=== PATIENT | male | born 1980 | race Caucasian/White ===

== ENCOUNTER 2018-07-27 10:13 | Emergency (ER) | payer BC ==
[2018-07-27] MEDS ORDERED: Sodium Chloride 0.9% 1,000 ML IV ONE (10:28)
[2018-07-27] MEDS ORDERED: Ondansetron 4 MG/2 ML SDV IVPUSH ONE (10:28)
--- NOTE | 2018-07-27 10:50 | EDM.PDOC ---
ED HPI GENERAL MEDICAL PROBLEM - General Chief Complaint: Gastrointestinal Problem Stated Complaint: VOMITING, NAUSEA Time Seen by Provider: 07/27/18 10:18 Source of Information: Reports: Patient History Limitations: Reports: No Limitations - History of Present Illness INITIAL COMMENTS - FREE TEXT/NARRATIVE: HISTORY AND PHYSICAL: History of present illness: Patient is a 37-year-old male who presents to the emergency room with complaints of dizziness, nausea and vomiting. He states Thursday he was swimming with his son and as he was getting out of the water he experienced an episode of "vertigo". He states this lasted several minutes where he felt like the room was spinning. States he had 3 episodes of this "vertigo", which lasted several minutes each. On Thursday, he was in [place] with his family, and his and son were getting "checked out" at a local walk-in clinic. (His and son have ear infections.) Patient was also seen by the provider at that time, and placed on prednisone for his symptoms. He has had 2 doses of this medication, which he feels has exacerbated his symptoms, "constant" dull dizziness feeling with position changes. He states started after his second dose he had felt nauseated and was unable to eat due to the nausea and several episodes of vomiting. Denies any fever, chills, chest pain, shortness of breath or cough. Denies any headache, change in vision, syncope or near syncope. Denies any diarrhea, constipation or dysuria. No rashes or lesions noted. Review of systems: As per history of present illness and below otherwise all systems reviewed and negative. Past medical history: As per history of present illness and as reviewed below otherwise noncontributory. Surgical history: As per history of present illness and as reviewed below otherwise noncontributory. Social history: No reported history of drug or alcohol abuse. Family history: As per history of present illness and as reviewed below otherwise noncontributory. Physical exam: General: Well-developed and well-nourished 36-year-old male. Alert and oriented. Nontoxic appearing and in no acute distress. HEENT: Atraumatic, normocephalic, pupils equal and reactive bilaterally, negative for conjunctival pallor or scleral icterus, mucous membranes moist, throat clear, neck supple, nontender, trachea midline. Fluid noted behind the left TM, no erythema or bulging membrane. Right TM is blocked with cerumen unable to visualize the membrane. No erythema in the canal. No drooling or trismus noted. No meningeal signs Lungs: Clear to auscultation, breath sounds equal bilaterally, chest nontender. Heart: S1S2, regular rate and rhythm without overt murmur Abdomen: Soft, nondistended, nontender. Negative for masses or hepatosplenomegaly. Negative for costovertebral tenderness. Pelvis: Stable nontender. Genitourinary: Deferred. Rectal: Deferred. Skin: Intact, warm, dry. No lesions or rashes noted. Extremities: Atraumatic, negative for cords or calf pain. Neurovascular unremarkable. Neuro: Awake, alert, oriented. Cranial nerves II through XII unremarkable. Cerebellum unremarkable. Motor and sensory unremarkable throughout. Exam nonfocal. Notes: Lab work, EKG, chest x-ray and head CT are within normal limits. Patient feels improved after the fluids and zofran. He states he still has a lot of pressure in his frontal sinus and behind the right ear. Supportive care measures such as to proximal or mineral oil to soften the cerumen. Due to the complaints of dizziness and right ear pain and frontal sinus discomfort - will treat with augmentin. Encouraged him to follow-up with the ENT in the next 1-2 days. He voices understanding and is agreeable to plan of care. Denies any further questions or concerns at this time. Diagnostics: CBC, CMP, Chest x-ray, EKG, Head CT, Therapeutics: IV fluids, Zofran, meclizine Prescription: Augmentin Zofran Impression: Dizziness Sinusitis Plan: 1. Please take the medications as directed. 2. Tylenol and/or ibuprofen as needed for pain management. Meclizine over-the- counter for dizziness may be helpful. Please give Flonase and use as directed for the next week. 3. If he continues to have symptoms please follow-up with the research professional, their numbers on the discharge instructions. Definitive disposition and diagnosis as appropriate pending reevaluation and review of above. Duration: Day(s): Location: Reports: Head - Related Data Allergies Allergy/AdvReac Type Severity Reaction Status Date / Time No Known Allergies Allergy Verified 07/27/18 10:39 Home Meds: Home Meds Amoxicillin/Clavulanate K [Augmentin 577-380 MG] 1 tab PO BID 10 Days #20 tablet 07/27/18 [Rx] Lisinopril 5 mg PO DAILY 07/27/18 [History] Ondansetron [Zofran ODT] 4 mg PO Q6H PRN #8 tab.dis 07/27/18 [Rx] ED ROS GENERAL - Review of Systems Review Of Systems: ROS reveals no pertinent complaints other than HPI. ED EXAM, GENERAL - Physical Exam Exam: See Below (See dictation) EKG INTERPRETATION EKG Date: 07/27/18 Time: 10:37 Rhythm: NSR Rate (Beats/Min): 77 Comparison: NA - No Prior EKG Course - Vital Signs Last Recorded V/S: Last Vital Signs Temp 96.7 F 07/27/18 10:36 Pulse 81 07/27/18 12:12 Resp 18 07/27/18 12:12 BP 154/110 H 07/27/18 12:12 Pulse Ox 97 07/27/18 12:12 - Orders/Labs/Meds Orders: Active Orders 24 hr Category Date Time Status EKG Documentation Completion [RC] STAT Care 07/27/18 10:28 Active Orthostatic Vital Signs [RC] ASDIRECTED Care 07/27/18 10:28 Active Labs: Laboratory Tests 07/27/18 07/27/18 Range/Units 10:50 10:50 WBC 12.73 H (4.0-11.0) K/uL RBC 5.91 H (4.50-5.90) M/uL Hgb 17.3 H (13.0-17.0) g/dL Hct 50.8 H (38.0-50.0) % MCV 86.0 (80.0-98.0) fL MCH 29.3 (27.0-32.0) pg MCHC 34.1 (31.0-37.0) g/dL RDW Std Deviation 41.3 (28.0-62.0) fl RDW Coeff of Durga 13 (11.0-15.0) % Plt Count 309 (150-400) K/uL MPV 10.10 (7.40-12.00) fL Neut % (Auto) 63.1 (48.0-80.0) % Lymph % (Auto) 25.7 (16.0-40.0) % [place] % (Auto) 9.0 (0.0-15.0) % Eos % (Auto) 1.8 (0.0-7.0) % Baso % (Auto) 0.4 (0.0-1.5) % Neut # (Auto) 8.0 H (1.4-5.7) K/uL Lymph # (Auto) 3.3 H (0.6-2.4) K/uL [place] # (Auto) 1.1 H (0.0-0.8) K/uL Eos # (Auto) 0.2 (0.0-0.7) K/uL Baso # (Auto) 0.1 (0.0-0.1) K/uL Nucleated RBC % 0.0 /100WBC Nucleated RBCs # 0 K/uL Sodium 137 (136-148) mmol/L Potassium 3.8 (3.5-5.1) mmol/L Chloride 101 (98-107) mmol/L Carbon Dioxide 29.1 (21.0-32.0) mmol/L BUN 16 (7.0-18.0) mg/dL Creatinine 1.2 (0.8-1.3) mg/dL Est Cr Clr Drug Dosing 90.64 mL/min Estimated GFR (MDRD) > 60.0 ml/min Glucose 127 H (74-106) mg/dL Calcium 9.7 (8.5-10.1) mg/dL Total Bilirubin 0.8 (0.2-1.0) mg/dL AST 19 (15-37) IU/L ALT 45 (14-63) IU/L Alkaline Phosphatase 87 (46-116) U/L Troponin I < 0.050 (0.000-0.056) ng/mL Total Protein 8.2 (6.4-8.2) g/dL Albumin 4.0 (3.4-5.0) g/dL Globulin 4.2 H (2.0-3.5) g/dL Albumin/Globulin Ratio 1.0 L (1.3-2.8) Meds: Medications Discontinued Medications Generic Name Dose Route Start Last Admin Trade Name Freq PRN Reason Stop Dose Admin Sodium Chloride 1,000 mls @ 999 mls/hr 07/27/18 10:28 07/27/18 10:52 Normal Saline IV 07/27/18 11:28 999 mls/hr STAT ONE Administration Meclizine HCl 25 mg 07/27/18 11:36 07/27/18 12:01 Antivert PO 07/27/18 11:37 25 mg ONETIME ONE Administration Ondansetron HCl 4 mg 07/27/18 10:28 07/27/18 10:52 Zofran IVPUSH 07/27/18 10:29 4 mg ONETIME ONE Administration Departure - Departure Time of Disposition: 11:53 Disposition: Home, Self-Care 01 Clinical Impression: Dizziness Sinusitis Qualifiers: Sinusitis location: frontal Chronicity: acute Recurrence: non-recurrent Qualified Code(s): J01.10 - Acute frontal sinusitis, unspecified - Discharge Information Prescriptions: Amoxicillin/Clavulanate K [Augmentin 875-125 MG] 1 tab PO BID 10 Days #20 tablet Ondansetron [Zofran ODT] 4 mg PO Q6H PRN #8 tab.dis PRN Reason: Nausea Instructions: Sinusitis, Adult, [id number], Dizziness, [id number] Referrals: PCP,None [Primary Care Provider] - Forms: ED Department Discharge Additional Instructions: The following information is given to patients seen in the emergency department who are being discharged to home. This information is to outline your options for follow-up care. We provide all patients seen in our emergency department with a follow-up referral. The need for follow-up, as well as the timing and circumstances, are variable depending upon the specifics of your emergency department visit. If you don't have a primary care physician on staff, we will provide you with a referral. We always advise you to contact your personal physician following an emergency department visit to inform them of the circumstance of the visit and for follow-up with them and/or the need for any referrals to a consulting specialist. The emergency department will also refer you to a specialist when appropriate. This referral assures that you have the opportunity for follow-up care with a specialist. All of these measure are taken in an effort to provide you with optimal care, which includes your follow-up. Under all circumstances we always encourage you to contact your private physician who remains a resource for coordinating your care. When calling for follow-up care, please make the office aware that this follow-up is from your recent emergency room visit. If for any reason you are refused follow-up, please contact the [facility] Emergency Department at and asked to speak to the emergency department charge nurse. [facility] [address] [place] [id number] [facility] - ENT [address] [place] [id number] 1. Please take the medications as directed. 2. Tylenol and/or ibuprofen as needed for pain management. Meclizine over-the- counter for dizziness may be helpful. 3. Please get Flonase [id number] and use as directed for the next week ( to help with fluid behind the ear). 4. If he continues to have symptoms please follow-up with the research professional, their numbers on the discharge instructions. - My Orders Last 24 Hours: My Active Orders 07/27/18 10:28 EKG Documentation Completion [RC] STAT Orthostatic Vital Signs [RC] ASDIRECTED - Assessment/Plan Last 24 Hours: My Active Orders 07/27/18 10:28 EKG Documentation Completion [RC] STAT Orthostatic Vital Signs [RC] ASDIRECTED
[2018-07-27 11:24] LABS: CHLORIDE,CL 101 mmol/L (98-107); SODIUM,NA 137 mmol/L (136-148)
[2018-07-27] MEDS ORDERED: Meclizine 25 MG Tab PO ONE (11:36)
--- NOTE | 2018-07-27 11:45 | CT ---
EXAMINATION: Non contrast CT head. Coronal and sagittal reformats. HISTORY: Dizziness FINDINGS: No evidence of intra or extra axial hemorrhage, mass, midline shift, hydrocephalus or edema. No hypoattenuation changes in the major vascular territories to suggest acute infarct. No abnormal intracranial calcifications are detected. No evidence of substantial vascular calcificat ions. Paranasal sinuses and mastoid air cells are well aerated without substantial findings. The orbits an d globes are symmetric. Pituitary fossa appears unremarkable. Calvarium is intact. No evidence of skull fracture. IMPRESSION: No acute intracranial findings.
--- NOTE | 2018-07-27 11:46 | CR ---
EXAMINATION: Portable chest radiograph. HISTORY: Dizziness. FINDINGS: The trachea is midline. The cardiomediastinal silhouette is within normal limits. No pulmonary infilt rates, effusions or pneumothorax. Osseous structures appear unremarkable. IMPRESSION: No acute cardiopulmonary process.
== END 2018-07-27 12:12 | disposition home or self-care (01) ==
LOC: MW.ED 10:13
DX: J01.10 Acute frontal sinusitis, unspecified (principal); R42 Dizziness and giddiness; Z79.899 Other long term (current) drug therapy
CPT/HCPCS: 36415; 70450; 71045; 80053; 84484; 85025; 93005; 96361; 96374; 99284; A9270; J2405; J7040; 99283